=== PATIENT | male | born 1985 | race Native Hawaiian/Other Pacific Islander ===

== ENCOUNTER 2018-04-16 07:12 | Emergency (ER) | payer OTHER ==
[2018-04-16 07:21] VITALS: BMI 26.7
[2018-04-16] MEDS ORDERED: Lidocaine 1% w Epi 1:100,000 Inj IJ ONE (07:25)
[2018-04-16] MEDS ORDERED: Lidocaine 1% w Epi 1:100,000 Inj ONE (07:30)
--- NOTE | 2018-04-16 07:52 | ED PDOC ---
HPI: Head Injury Time Seen by Provider: 04/16/18 07:21 Chief Complaint (Nursing): Abnormal Skin Integrity Chief Complaint (Provider): Abnormal Skin Integrity History Per: Patient History/Exam Limitations: no limitations Onset/Duration Of Symptoms: Days (x1) Additional Complaint(s): 32 year old male presents to the emergency room complaining of sustaining a laceration to his right eyebrow while playing basketball last night. Denies loss of consciousness or vision changes. PMD: none provided Past Medical History Reviewed: Historical Data, Nursing Documentation, Vital Signs Vital Signs: Last Vital Signs Temp 97.7 F 04/16/18 07:20 Pulse 57 L 04/16/18 07:20 Resp 20 04/16/18 07:20 BP 137/76 04/16/18 07:20 Pulse Ox 98 04/16/18 07:20 - Medical History PMH: No Chronic Diseases - Surgical History Surgical History: No Surg Hx - Family History Family History: States: No Known Family Hx - Social History Current smoker - smoking cessation education provided: Yes Alcohol: Social Drugs: Denies - Home Medications Home Medications: Ambulatory Orders Medication Instructions Recorded No Known Home Med 04/16/18 - Allergies Allergies/Adverse Reactions: Allergies Allergy/AdvReac Type Severity Reaction Status Date / Time No Known Allergies Allergy Verified 04/16/18 07:25 Review of Systems ROS Statement: Except As Marked, All Systems Reviewed And Found Negative Eyes: Negative for: Vision Change Skin: Positive for: Other (laceration to right eyebrow) Neurological: Negative for: Other (loss of consciousness) Physical Exam - Reviewed Nursing Documentation Reviewed: Yes Vital Signs Reviewed: Yes - Physical Exam Head Exam: Negative for: ATRAUMATIC (0.5cm laceration across right eyebrow with no palpation of fracture) Eye Exam: Positive for: EOMI, PERRL Neurologic/Psych: Positive for: Alert, Oriented. Negative for: Motor/Sensory Deficits - ECG O2 Sat by Pulse Oximetry: 98 (RA) Pulse Ox Interpretation: Normal Medical Decision Making Medical Decision Making: Time: 7:25 Initial Plan: --Lidocane/Epinephrine 1% 3ml IJ Scribe Attestation: Documented by Aditi Choudhary, acting as a scribe for Xander Melchor MD Provider Scribe Attestation: All medical entries made by the Scribe were at my direction and personally dictated by me. I have reviewed the chart and agree that the record accurately reflects my personal performance of the history, physical exam, medical decision making, and the department course for this patient. I have also personally directed, reviewed, and agree with the discharge instructions and disposition. Disposition - Clinical Impression Clinical Impression: Laceration - Patient ED Disposition Is Patient to be Admitted: No - Disposition Referrals: [facility] [Outside] Disposition: Routine/Home Disposition Time: 08:15 Condition: FAIR Instructions: Laceration Repair, Wound Care Forms: [employer] (Citizen [place] Procedure: Wound Repair - Time Performed Time Performed: 07:25 - Performed by Performed by: Attending Physician - Indications Indication(s):: Laceration - Location Location:: Eyebrow (right) Dimensions Length cm: 0.5 - Anesthetic Technique Local/Regional Anesthetic:: Lidocaine 1% w/epi (3ml) - Muscle repiar layer closed with Muscle repair layer closed with:: Type (4 #50 interrupted prolene sutures), Dressing applied
[2018-04-16 08:08] VITALS: BP 127/70; PULSE 61; RESP 18; TEMP 97.9; O2SAT 98
== END 2018-04-16 08:06 | disposition home or self-care (01) ==
LOC: H.ER 07:12
DX: S01.111A Laceration without foreign body of right eyelid and periocular area, initial encounter (principal); W22.8XXA Striking against or struck by other objects, initial encounter; Y93.67 Activity, basketball

== ENCOUNTER 2018-04-23 07:05 | Emergency (ER) | payer OTHER ==
[2018-04-23 07:18] VITALS: BMI 24.3
[2018-04-23 07:20] VITALS: BP 116/73; PULSE 55; RESP 16; TEMP 98.2; O2SAT 97
--- NOTE | 2018-04-23 07:48 | ED PDOC ---
HPI: Wound Care - HPI Time Seen by Provider: 04/23/18 07:28 Chief Complaint (Nursing): Suture/Staple Removal Chief Complaint (Provider): Suture Removal History Per: Patient Exam Limitations: no limitations Onset/Duration Of Symptoms: Days (x1 week ago) Current Symptoms Are (Timing): Still Present Location Of Injury: Left: Face (eyebrow) Additional Complaint(s): 32 y/o male presents to the ED for suture removal of the left eyebrow. PMD: none provided Past Medical History Reviewed: Historical Data, Nursing Documentation, Vital Signs Vital Signs: Last Vital Signs Temp 98.2 F 04/23/18 07:18 Pulse 55 L 04/23/18 07:18 Resp 16 04/23/18 07:18 BP 116/73 04/23/18 07:18 Pulse Ox 97 04/23/18 07:18 - Medical History PMH: No Chronic Diseases - Surgical History Surgical History: No Surg Hx - Family History Family History: States: No Known Family Hx - Home Medications Home Medications: Ambulatory Orders Medication Instructions Recorded No Known Home Med 04/16/18 - Allergies Allergies/Adverse Reactions: Allergies Allergy/AdvReac Type Severity Reaction Status Date / Time No Known Allergies Allergy Verified 04/16/18 07:25 Review of Systems ROS Statement: Except As Marked, All Systems Reviewed And Found Negative Skin: Positive for: Other (suture removal of the left eyebrow) Physical Exam - Reviewed Nursing Documentation Reviewed: Yes Vital Signs Reviewed: Yes - Physical Exam Appears: Positive for: Well, Non-toxic, No Acute Distress Head Exam: Positive for: ATRAUMATIC, NORMAL INSPECTION, NORMOCEPHALIC Skin: Positive for: Normal Color (4 suture noted on exam during suture removal) Eye Exam: Positive for: EOMI, Normal appearance, PERRL Neurologic/Psych: Positive for: Alert, Oriented (x3) - ECG O2 Sat by Pulse Oximetry: 97 (RA) Pulse Ox Interpretation: Normal Medical Decision Making Medical Decision Making: Time: :18 Impression: suture removal Initial Plan: * suture removal of the left eyebrow Scribe Attestation: Documented by Colton Vickers acting as a scribe for Elly Flores MD. Scribe Attestation: All medical record entries made by the Scribe were at my direction and personally dictated by me. I have reviewed the chart and agree that the record accurately reflects my personal performance of the history, physical exam, medical decision making, and the department course for this patient. I have also personally directed, reviewed, and agree with the discharge instructions and disposition. removed 4 sutures (confirmed by patient) from right eyebrow. Patient tolerated procedure well. Disposition - Clinical Impression Clinical Impression: Removal of suture - Patient ED Disposition Is Patient to be Admitted: No Doctor Will See Patient In The: Office Counseled Patient/Family Regarding: Diagnosis - Disposition Referrals: FAMILY PROVIDER,NO [Primary Care Provider] - [facility] [Outside] Disposition: Routine/Home Disposition Time: 08:19 Condition: STABLE Instructions: Stitches Removal Forms: [employer] (Mongolian) - POA Present On Arrival: Falls Or Trauma
== END 2018-04-23 08:30 | disposition home or self-care (01) ==
LOC: H.ER 07:05 → SUPCPDRO 07:05 → H.ER 08:30
DX: Z48.02 Encounter for removal of sutures (principal)